=== PATIENT | male | born 1960 | race Caucasian/White ===

== ENCOUNTER 2020-04-10 15:21 | Emergency (ER) | payer MEDICAID ==
[~2020-04-10] VITALS: Ht 188 cm; Wt 68.9 kg
--- NOTE | 2020-04-10 16:08 | NUR ---
ED Nurse Note: Pt walked into ED for flu-like symptoms for 1 week. Pt states he's had bodyaches and chills, btu no nausea or vomiting. Pt is alert and orientedx4, ambulatory. Pt also says he is coughing up phlegm.
[2020-04-10 16:09] VITALS: BP 114/87
--- NOTE | 2020-04-10 16:59 | Emergency Room Report ---
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 He denies history of COPD or asthma. He denies recent travel. Patient reports that he has been tested recently 1 week ago for COVID-19 was negative he also had the finger prick test done yesterday was told that he was negative. Patient reports that he usually gets the flu at this time every year and has similar symptoms. He denies photophobia, headache, neck pain/stiffness, shortness of breath, wheezing, blood in the sputum, chest pain or palpitations. 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 Review of Systems All Other Systems: negative except mentioned in HPI Physical Exam Vital Signs Date Time Temp Pulse Resp B/P (MAP) Pulse Ox O2 Delivery O2 Flow Rate FiO2 04/10/20 15:33 100.6 97 18 110/84 (93) 93 Room Air 04/10/20 16:09 98 Sp02 EP Interpretation: reviewed, normal General Appearance: no apparent distress, alert, GCS 15, non-toxic Head: normocephalic, atraumatic Eyes: bilateral eye normal inspection, bilateral eye PERRL ENT: hearing grossly normal, normal pharynx, normal voice, TMs + canals normal, uvula midline Neck: full range of motion, no meningismus Respiratory: lungs clear, speaking full sentences, wheezing - acant wheezes diffusely, other - surgical scar over sternum and right ribs Cardiovascular #1: regular rate, rhythm, no edema, normal capillary refill Musculoskeletal: back normal, normal range of motion, gait/station normal, non- tender Neurologic: alert, motor strength/tone normal, oriented x3, sensory intact, responsive, speech normal Psychiatric: judgement/insight normal Skin: no rash, normal color Lymphatic: no adenopathy Medical Decision Making PA Attestation Dr. Barraza is my supervising Physician whom patient management has been discu ssed with. 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 He denies history of COPD or asthma. He denies recent travel. Patient reports that he has been tested recently 1 week ago for COVID-19 was negative he also had the finger prick test done yesterday was told that he was negative. Patient reports that he usually gets the flu at this time every year and has similar symptoms. He denies photophobia, headache, neck pain/stiffness, shortness of breath, wheezing, blood in the sputum, chest pain or palpitations. Ddx considered but are not limited to URI, pneumonia, PE, strep pharyngitis, meningitis, COVID-19 Vital signs: Pt. has low grade fever of 100.5, the remaining VS are WNL H&PE are most consistent with URI- no meningeal signs, oropharynx is not involved, no evidence of bacterial infection at this time. This patient is in no acute distress not showing signs of increased respiratory efforts, nontoxic in appearance. Normal oxygen saturation. ORDERS: -Rapid COVID-19: negative -CXR: unremarkable ED INTERVENTIONS: -Tylenol PO for low grade fever of 100.5 -I do not identify an emergent condition at this time. With current presentation, pt. is stable for close outpatient follow up and conservative treatment. D/w pt. to return promptly to ED with worsening or new symptoms.- Pt. verbalizes' understanding and agreement with proposed treatment plan. DISCHARGE: At this time pt. is stable for d/c to home. Will provide printed patient care instructions, and any necessary prescriptions. Care plan and follow up instructions have been discussed with the patient prior to discharge. Chest X-Ray Diagnostic Results Chest X-Ray Diagnostic Results : Chest X-Ray Ordered: Yes # of Views/Limited/Complete: 1 View EP Interpretation: Yes LUZ Xray: Interpretation reviewed, by supervising MD, and agrees with findings. Interpretation: no consolidation, no effusion, no pneumothorax, no acute cardiopulmonary disease Impression: No acute disease Electronically Signed by: Colleen Wang PA-C Last Vital Signs Date Time Temp Pulse Resp B/P (MAP) Pulse Ox O2 Delivery O2 Flow Rate FiO2 04/10/20 16:09 96 16 Room Air 98 04/10/20 16:09 100.6 114/87 98 Disposition: HOME, SELF-CARE Condition: Stable Scripts Albuterol Sulfate* (Albuterol Sulfate Hfa*) 8.5 Gm Hfa.aer.ad 2 PUFF INH Q3H, #1 INH Prov: Colleen aWng 04/10/20 Guaifenesin (Mucinex) 1,200 Mg Tab.er.12h 1200 MG PO Q12HR for 10 Days, #20 TAB Prov: Colleen Wang 04/10/20 Acetaminophen* (TYLENOL EXTRA STRENGTH*) 500 Mg Tablet 500 MG ORAL Q8H PRN for Prn Headache/Temp > 101, #30 TAB 0 Refills Prov: Colleen Wang 04/10/20 Referrals: [facility] Patient Instructions: Acute Bronchitis, [id number], Cough, Adult, [id number] Additional Instructions: Take medications as directed. Follow up with a Primary Care Provider in 3-5 days, even if your symptoms have resolved. --Please review list of primary care clinics, if you do not already have a primary care provider Return sooner to ED if new symptoms occur, or current symptoms become worse. - Please note that this Emergency Department Report was dictated using [employer] piler technology software, occasionally this can lead to erroneous entry secondary to interpretation by the dictation equipment. Colleen Wang Apr 10, 2020 16:59
[2020-04-10] MEDS ORDERED: TYLENOL EXTRA500 MG ORAL (17:02)
[2020-04-10] MEDS ORDERED: MUCINEX1200 MG PO (17:02)
[2020-04-10] MEDS ORDERED: ALBUTEROL SULF8.5 G1 INH (17:02)
--- NOTE | 2020-04-10 17:33 | NUR ---
ER DISCHARGE NOTE: Patient is cleared to be discharged per ERMD, pt is aox4, on room air, with stable vital signs. pt was given dc and prescription instructions, pt was able to verbalize understanding, pt id band removed. pt is able to ambulate with steady gait. pt took all belongings. Pt educated regarding cough and bronchitis and quittign smoking.
[2020-04-10 17:34] VITALS: BP 117/89
--- NOTE | 2020-04-10 18:07 | Diagnostic Imaging Report ---
Indication: Chest pain Technique: One view of the chest Comparison: none Findings: Possible hyperinflation in seen at the lung apices. Surgical clips project over the right upper hemithorax. There are median sternotomy sutures. The remainder the lungs and pleural spaces are clear. The heart size is normal. Impression: The acute process Possible mild COPD changes
== END 2020-04-10 17:37 | disposition home or self-care (01) ==
LOC: EMR 16:50
DX: J06.9 Acute upper respiratory infection, unspecified (principal); R05 Cough; F17.200 Nicotine dependence, unspecified, uncomplicated
CPT/HCPCS: 71045; U0002; Z7502; 99283